=== PATIENT | male | born 1930 | race Hispanic/Latino ===

== ENCOUNTER → 2017-08-26 | Outpatient (CLI) | payer OTHER ==
[~2017-08-26] MED LIST: ACET-2247 PO; ASPI-555 PO; CHOL400C9 PO; CLOP75TA32 PO; FINA5TAB41 PO; FURO40TA5 PO; IRON PO; LEVO25TA54 PO; METF500T6 PO; METOPROLOL ER PO; MULT-1258 PO; NITR0.4T50 SL; OMEP20TA25 PO; PROMETHAZINE DM PO; RANO500T2 PO; TAMS0.4C32 PO; TRAM50TA4 PO
== END | disposition home or self-care (01) ==
LOC: SHCH 10:47
PROVIDERS: ATTEND Internal Medicine Cardiovascular Disease
DX: I73.9 Peripheral vascular disease, unspecified (principal)
CPT/HCPCS: 93922

== ENCOUNTER 2017-10-01 10:07 | Day surgery (SDC) | payer OTHER ==
[2017-09-29 11:30] VITALS: BP 121/59
[2017-09-29 11:48] LABS: BASOPHILS % (AUTO) 0.7 % (0.0-5.0); EOSINOPHILS % (AUTO) 1.2 % (0.0-8.0); HEMATOCRIT 38.5 % (42-54); LYMPHOCYTES % (AUTO) 23.6 % (21.0-51.0); MEAN CORPUSCULAR HEMOGLOBIN 30.7 pg (27.0-33.0); MEAN CORPUSCULAR HGB CONC 34.1 g/dL (32.0-36.0); MEAN CORPUSCULAR VOLUME 89.9 fL (79-99); MONOCYTES % (AUTO) 7.7 % (3.0-13.0); NEUTROPHILS % (AUTO) 66.8 % (40.0-77.0); PLATELET COUNT (AUTO) 186 K/uL (130-400); RED BLOOD CELL COUNT(AUTO) 4.28 MIL/uL (4.50-6.20); RED CELL DISTRIBUTION WIDTH 13.8 % (11.0-15.5); WHITE BLOOD COUNT (AUTO) 5.9 K/uL (4.8-10.8)
[2017-09-29 11:55] LABS: CREATININE 1.9 mg/dL (0.5-1.5); POTASSIUM 4.8 mmol/L (3.5-5.1)
[2017-09-29 12:23] LABS: INR 1.07 (0.85-1.15); PARTIAL THROMBOPLASTIN TIME 28.1 SEC (26.3-35.5); PROTHROMBIN TIME 11.2 SEC (9.6-11.6)
[~2017-10-01] VITALS: Ht 172.7 cm; Wt 68.9 kg
[~2017-10-01 10:07] MED LIST changes: +CLINDAMYCIN 900 MG/D5% WATER 50 ML IV SCH; +SODIUM CHLORIDE 0.9% 1000ML 1,000 ML IV SCH; -TRAM50TA4 PO
[2017-10-01 11:01] VITALS: BP 129/64
[2017-10-01] MEDS ORDERED: VANCOMYCIN 1GM+NS 250ML 250 ML IV SCH (11:15)
[2017-10-01] MEDS ORDERED: BUPIVACAINE/PF 0.25% 30ML VIAL IJ ONE (11:36)
[2017-10-01] MEDS ORDERED: CEFAZOLIN 1GM / D5W 50ML 0 ML ONE (11:36)
[2017-10-01] MEDS ORDERED: LIDOCAINE HCL 1% MDV 50ML VIAL ONE (11:37)
[2017-10-01] MEDS ORDERED: VANCOMYCIN 1GM+NS 250ML 500 ML IV ONE (11:42)
[2017-10-01] MEDS ORDERED: MIDAZOLAM HCL 1 MG/ML 2ML VIAL ONE ×2 (12:09→12:21)
[2017-10-01] MEDS ORDERED: MEPERIDINE-PF 25 MG/ML SYG ONE ×2 (12:09→12:21)
[2017-10-01] MEDS ORDERED: ACETAMINOPHEN 325 MG TAB PO PRN (13:15)
[2017-10-01] MEDS ORDERED: ACETAMINOPHEN-CODEINE 300/30MG TAB PO PRN ×2 (13:15)
[2017-10-01] MEDS ORDERED: TRAM50TA4 PO (13:20)
[2017-10-01 13:31] VITALS: BP 120/54
[2017-10-01 13:45] VITALS: BP 120/47
[2017-10-01] MEDS ORDERED: ONDANSETRON HCL 4 MG/2 ML VIAL IVP SCH (13:45)
[2017-10-01 14:00] VITALS: BP 118/48
[2017-10-01 14:15] VITALS: BP 119/54
== END 2017-10-01 17:30 | disposition home or self-care (01) ==
LOC: DAH 10:07 → SUH 10:07
PROVIDERS: ATTEND Internal Medicine Cardiovascular Disease
DX: I50.89 Other heart failure (principal); I25.2 Old myocardial infarction; J18.8 Other pneumonia, unspecified organism; I11.0 Hypertensive heart disease with heart failure; E78.5 Hyperlipidemia, unspecified; E11.40 Type 2 diabetes mellitus with diabetic neuropathy, unspecified; Z79.899 Other long term (current) drug therapy; Z79.84 Long term (current) use of oral hypoglycemic drugs; Z79.82 Long term (current) use of aspirin; Z88.0 Allergy status to penicillin; K21.9 Gastro-esophageal reflux disease without esophagitis; Z98.890 Other specified postprocedural states; Z95.1 Presence of aortocoronary bypass graft; Z90.49 Acquired absence of other specified parts of digestive tract
CPT/HCPCS: 33263; 36415; 80048; 82948; 85025; 85610; 85730; 93005; A4606; C1721; J2175 ×2; J2250 ×2; J3370; J3490 ×2; J7030; 99152; 99153; J0690

== ENCOUNTER 2017-10-02 06:30 | Emergency (ER) | payer OTHER ==
[~2017-10-02 06:30] MED LIST changes: -CLINDAMYCIN 900 MG/D5% WATER 50 ML IV SCH; -SODIUM CHLORIDE 0.9% 1000ML 1,000 ML IV SCH; +TRAM50TA4 PO
== END 2017-10-02 08:23 | disposition home or self-care (01) ==
LOC: EDH 06:30
DX: I97.618 Postprocedural hemorrhage of a circulatory system organ or structure following other circulatory system procedure (principal); I11.0 Hypertensive heart disease with heart failure; I50.9 Heart failure, unspecified; I25.10 Atherosclerotic heart disease of native coronary artery without angina pectoris; Z98.890 Other specified postprocedural states; Z87.891 Personal history of nicotine dependence
CPT/HCPCS: 99281

== ENCOUNTER → 2019-03-24 | Outpatient (CLI) | payer OTHER ==
[~2019-03-24] MED LIST changes: +METF-444 PO; -METF500T6 PO
== END | disposition home or self-care (01) ==
LOC: SHCH 10:54
PROVIDERS: ATTEND Internal Medicine Cardiovascular Disease
DX: I11.0 Hypertensive heart disease with heart failure (principal); I50.22 Chronic systolic (congestive) heart failure; I31.3 Pericardial effusion (noninflammatory)
CPT/HCPCS: 93306

== ENCOUNTER → 2019-04-12 | Outpatient (CLI) | payer OTHER ==
[~2019-04-12] VITALS: Ht 172.7 cm; Wt 73.0 kg
[~2019-04-12] MED LIST changes: +REGADENOSON 0.4 MG/5 ML PF SYG IVP SCH
== END | disposition home or self-care (01) ==
LOC: SHCH 08:13
PROVIDERS: ATTEND Internal Medicine Cardiovascular Disease
DX: I25.119 Atherosclerotic heart disease of native coronary artery with unspecified angina pectoris (principal)
CPT/HCPCS: 78452; 93017; 96374; A9500 ×2; J2785